=== PATIENT | female | born 2000 | race Caucasian/White ===

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

== ENCOUNTER → 2021-01-27 14:56 | Outpatient (POV) | payer OTHER, SELFPAY | PROVIDERS: Visit Provider Nurse Practitioner Family | DX: Z00.00 Encounter for general adult medical examination without abnormal findings (principal) ==

== ENCOUNTER 2021-02-03 09:09 | Emergency (ER) | payer OTHER, SELFPAY ==
[2021-02-03 10:00] VITALS: BP 141/70; PULSE 73; RESP 18; TEMP 36.8; O2SAT 100; BMI 24.7
--- NOTE | 2021-02-03 10:19 | HMH.EDUTC ---
[facility] [place] Clinical Impression: Viral upper respiratory infection, Encounter for laboratory testing for COVID-19 virus Disposition: Home, Self-Care Condition on Discharge: Good Instructions: DI for Viral Upper Respiratory Infection -- Adult, DI for COVID-19 (Suspected or Confirmed ), Preventing the Spread of Coronavirus Discharge Instructions Additional Instructions: *Monitor Temp, Over the counter Motrin or Tylenol as directed/as needed Tylenol every 4 hours and Motrin every 6 hours (as long as your family doctor has told you that you can take it) for fever or pa-in. and straight to ER if unable to lower temp less than 101.0 after medication given *Warm salt water gargles may help to soothe the throat *Throat Lozenges *Warm fluids like tea with honey may help to soothe the throat *Sleep elevated *Humidifier/Vaporizer *Flonase 2 sprays in each nostril daily but be aware that it may take 2-3 days before you notice improvement Your throat swab was sent for culture. Those results are typically sent to your primary care. Be sure to follow up in 2-3 days with your family doctor/primary care physician if no improvement so they can review those result and treat if necessary. If you don?t have a primary care doctor, I recommend you get one but in the mean time, you will have to return to a walk in clinic Follow up IMMEDIATELY for new or worsening symptoms or no Noticeable improvement over the next 48-72 hours. 911 for difficulty breathing or swallowing You were tested for today for COVID19 your test result should be back in the next 24-48 hours, [facility] to see if your test results are back in the next 48 it may say detected that means your result is positive.You was given handout instructions on how log on and see your results. If you do not have internet access you may call the [facility] for your results [phone] You was given a handout with instructions for Self Quarantine and Self isolation for while you wait on test results and what to do if they are positive If you are positive the Health Dept will be contacting you also Make sure to take your Vitamins Vit. C Vit D and Zinc if you can take them Prescriptions: Fluticasone Propionate [Flonase 50mcg nasal spray 16gm] 1 spr NS DAILY #1 ml Transmission Status: Pending to [facility] guaiFENesin [Mucinex 600mg tablet] 600 mg PO BID PRN #12 tab PRN Reason: Congestion Transmission Status: Pending to [facility] Referrals: Terry Hoff MD [Primary Care Provider] - As needed Forms: Work/School Release Time of Disposition: 10:29 Medical Decision Making - Luis Inquiry Pt receiving controlled substance: No Luis was queried for this patient: No Vital Signs: 02/03/21 10:00 Temperature 98.3 F Temperature Source Oral Pulse Rate [Right Brachial] 73 Respiratory Rate 18 Blood Pressure [Right Arm] 141/70 H Blood Pressure Mean [Right Arm] 93 Blood Pressure Source [Right Arm] Automatic Cuff Blood Pressure Position [Right Arm] Sitting 02 Sat by Pulse Oximetry 100 Oxygen Delivery Method Room Air Orders (Tests/Meds): ORDERS Category Date Time Status Covid-19 Nasal PCR ([facility]) Routine Lab 02/03/21 09:52 Stop Req Full Resp Panel w/COVID ([facility]) Routine Lab 02/03/21 09:52 Received Medical Decision Narrative: Denies chance of pregancy [facility] [place] HPI - General Stated complaint: Fever; cough; sore throat Time Seen by Provider: 02/03/21 10:19 Mode of Arrival: Ambulatory Source of Information: Patient Limitations: No Limitations Description of Symptoms (Recalled from Triage Doc. by RN): PATIENT C/O FEVER, COUGH, SORE THROAT, AND RUNNY NOSE X 2 DAYS HEENT Symptoms (Recalled from RN notes): Yes Resp Symptoms (Recalled from RN notes): Yes Skin Symptoms (Recalled from RN notes): No MS Symptoms (Recalled from RN notes): No Functional Status (Recalled from RN notes): WNL - History of Present Illness Provider Complaint: Patie
[2021-02-03 10:30] VITALS: BP 141/70; PULSE 73; RESP 18; TEMP 36.8; O2SAT 100
[2021-02-03 10:31] LABS: Adenovirus,PCR Not Detected (NotDetected); Bordetella Pertussis Not Detected (NotDetected); Chlamydophila Pneumoniae, PCR Not Detected (NotDetected); Coronavirus 19, PCR Not Detected (NotDetected); Coronavirus 229E Not Detected (NotDetected); Coronavirus NL63 Not Detected (NotDetected); Coronavirus OC43 Not Detected (NotDetected); Coronovirus HKU1,PCR Not Detected (NotDetected); Human Metapneumovirus Not Detected (NotDetected); Influenza A, PCR Not Detected (NotDetected); Influenza AH1, 2009 Not Detected (NotDetected); Influenza AH1, PCR Not Detected (NotDetected); Influenza AH3,PCR Not Detected (NotDetected); Influenza B, PCR Not Detected (NotDetected); Mycoplasma Pneumoniae, PCR Not Detected (NotDetected); Parainfluenza 1, PCR Not Detected (NotDetected); Parainfluenza 2, PCR Not Detected (NotDetected); Parainfluenza 3, PCR Not Detected (NotDetected); Parainfluenza 4, PCR Not Detected (NotDetected); Respiratory Syncytial Virus Not Detected (NotDetected)
[2021-02-03 11:53] LABS: Rhinovirus/Enterovirus Detected (NotDetected)
[2021-02-03 21:19] LABS: UTC Strep Screen (Rapid) Negative (Negative)
== END 2021-02-03 10:35 | disposition home or self-care (01) ==
PROVIDERS: Emergency Provider Nurse Practitioner; PCP Internal Medicine Adolescent Medicine
DX: J06.9 Acute upper respiratory infection, unspecified (principal); Z20.822 Contact with and (suspected) exposure to COVID-19
CPT/HCPCS: 87581; 87633; 87798; 87880; 99203; G0463; U0003

== ENCOUNTER 2021-02-04 19:56 | Emergency (ER) | payer OTHER, SELFPAY ==
[2021-02-04 20:00] VITALS: BP 130/71; PULSE 88; RESP 18; TEMP 37.3; O2SAT 96; BMI 24.7
--- NOTE | 2021-02-04 20:45 | HMH.EDUTC ---
[facility] [place]: Vertigo Disposition: Home, Self-Care Condition on Discharge: Good Instructions: Vertigo, DI for Vertigo, Meclizine Additional Instructions: Dont take your Escitalopram if you are taking Zofran Take Meclizine as prescribed for dizziness and Vertigo Follow up with your Family Doctor for further treatment and evaluation Straight to ER if any life threatening symptoms Prescriptions: Meclizine HCl [Antivert 12.5mg tablet] 12.5 mg PO Q8HP PRN #15 tab PRN Reason: Dizziness Transmission Status: Pending to [facility] Referrals: Terry Hoff MD [Primary Care Provider] - As needed Forms: Work/School Release Time of Disposition: 21:28 Medical Decision Making - Luis Inquiry Pt receiving controlled substance: No Luis was queried for this patient: No Vital Signs: 02/04/21 20:00 02/04/21 21:03 Temperature 99.1 F 99.1 F Temperature Source Oral Pulse Rate 88 Pulse Rate [Right Brachial] 88 Respiratory Rate 18 18 Blood Pressure 130/71 Blood Pressure [Right Arm] 130/71 Blood Pressure Mean [Right Arm] 90 Blood Pressure Source [Right Arm] Automatic Cuff Blood Pressure Position [Right Arm] Sitting 02 Sat by Pulse Oximetry 96 Oxygen Delivery Method Room Air Orders (Tests/Meds): ED MEDICATIONS Generic Name Dose Route Start Last Admin Trade Name Freq PRN Reason Stop Dose Admin Meclizine HCl 12.5 mg 02/04/21 21:00 02/04/21 21:03 Meclizine 12.5mg Tablet PO 03/06/21 20:59 12.5 mg TID SKIP Administration Discontinued Medications Generic Name Dose Route Start Last Admin Trade Name Freq PRN Reason Stop Dose Admin Ondansetron HCl 4 mg 02/04/21 20:51 02/04/21 21:03 Ondansetron 4mg/2ml Vial IM 02/04/21 20:52 4 mg ONCE ONE Administration Medical Decision Narrative: Patient state that today is last day of period State that when she moves her head it feels like the room is spinning around her and makes her feel sick at her stomach State that when she moves too quickly she will vomit and has vomited several times today prior to arrival Patient states that she is suppose to take Escitalopram but she only takes it every now and then States that she has not taken it in several days Discussed with pharmacy and agreed patient states that she attempted to take oral zofran earlier will give injection and 12.5mg meclizine for vertigo Patient states that she feels much better after medication no longer vomiting and state that dizziness is now gone [facility] [place] - General Stated complaint: Sore throat,cough,VEGA Time Seen by Provider: 02/04/21 20:45 Mode of Arrival: Ambulatory Source of Information: Patient Limitations: No Limitations Description of Symptoms (Recalled from Triage Doc. by RN): PATIENT SEEN IN [email or web address] YESTERDAY AND DX WITH RHINOVIRUS. TODAY SHE C/O DIZZINESS WITH VOMITING AT AROUND 1430. HEENT Symptoms (Recalled from RN notes): Yes Resp Symptoms (Recalled from RN notes): No Skin Symptoms (Recalled from RN notes): No MS Symptoms (Recalled from RN notes): No Functional Status (Recalled from RN notes): WNL - History of Present Illness Provider Complaint: Patient state that she was seen in [facility] [[email or web address] yesterday and dx with RhinoVirus States that she was fine earlier today and then she bent over and felt like the room started spinning around her and she vomited because it made her feel sick at her stomach States that now when she moves her head it feels like the room starts spinning and it makes her feel dizzy and sick at her stomach - Related Data Home Medications Medication Instructions Recorded Confirmed azaTHIOprine [azaTHIOprine 50mg 50 mg PO DAILY 09/21/17 02/03/21 Tablet] Escitalopram Oxalate [Lexapro] 10 mg PO DAILY 02/03/21 02/03/21 Levothyroxine Sodium 50 mcg PO DAILY 02/03/21 02/03/21 [Levothyroxine 50mcg (0.05mg) Tab] Previous Rx's Medication Instructions Recorded Fluticasone Propionate [Flonase 1 spr NS DAILY
[2021-02-04 21:03] VITALS: BP 130/71; PULSE 88; RESP 18; TEMP 37.3; O2SAT 96
== END 2021-02-04 21:33 | disposition home or self-care (01) ==
PROVIDERS: Emergency Provider Nurse Practitioner; PCP Internal Medicine Adolescent Medicine
DX: R42 Dizziness and giddiness (principal); Z88.0 Allergy status to penicillin; Z88.5 Allergy status to narcotic agent
CPT/HCPCS: 96372; 99202; G0463; J2405

== ENCOUNTER 2021-03-04 09:35 | Emergency (ER) | payer OTHER, SELFPAY ==
[2021-03-04 09:59] VITALS: BP 117/77; PULSE 78; RESP 19; TEMP 36.9; O2SAT 98; BMI 26.9
--- NOTE | 2021-03-04 10:12 | HMH.EDUTC ---
[facility] [place] Dis[place] Clinical Impression: Vertigo Disposition: Home, Self-Care Condition on Discharge: Good Instructions: Vertigo, DI for Vertigo Additional Instructions: Take medication as prescribed for Vertigo When getting up make sure to sit up, let your legs dangle and stand slowly to help keep you from falling Follow up with your Family Doctor for further evaluation and treatment Return if needed Straight to ER if any life threatening symptoms Prescriptions: Meclizine HCl [Antivert 12.5mg tablet] 12.5 mg PO Q8HP PRN #30 tab PRN Reason: Dizziness Transmission Status: Received by [facility] Ondansetron [Zofran 4mg ODT] 4 mg PO TIDP PRN #10 tab PRN Reason: Nausea Transmission Status: Received by [facility] Referrals: Terry Hoff MD [Primary Care Provider] - As needed Forms: Work/School Release Medical Decision Making - Luis Inquiry Pt receiving controlled substance: No Luis was queried for this patient: No Vital Signs: 03/04/21 09:59 03/04/21 10:37 Temperature 98.5 F 98.5 F Temperature Source Oral Pulse Rate 78 Pulse Rate [Left] 78 Respiratory Rate 19 19 Blood Pressure 117/77 Blood Pressure [Right Arm] 117/77 Blood Pressure Mean [Right Arm] 90 02 Sat by Pulse Oximetry 98 - Lab Data Lab results reviewed: Yes: I reviewed the patient's lab results. Lab Results 03/04/21 10:06: [facility] Negative Orders (Tests/Meds): ED MEDICATIONS Discontinued Medications Generic Name Dose Route Start Last Admin Trade Name Jordanq PRN Reason Stop Dose Admin Meclizine HCl 12.5 mg 03/04/21 10:32 03/04/21 10:34 Meclizine 25mg Tablet PO 03/04/21 10:33 12.5 mg ONCE ONE Administration Ondansetron HCl 4 mg 03/04/21 10:32 03/04/21 10:34 Ondansetron 4mg Odt SL 03/04/21 10:33 4 mg ONCE ONE Administration Medical Decision Narrative: Patient reports that she is having vertigo like she has had in the past States that when she stands up or rolls over she feels like the room is spinning around her and it makes her feel nauseous States that she had Meclizine that she took when she would have these episodes and it did help with symptoms but she is out of the medication and has not got to see PCP Patient states vertigo and nausea improved after medication [facility] [place] HPI - General Stated complaint: Nausea, vomiting, dizzy Time Seen by Provider: 03/04/21 10:12 Mode of Arrival: Ambulatory Source of Information: Patient Limitations: No Limitations HEENT Symptoms (Recalled from RN notes): No Resp Symptoms (Recalled from RN notes): No Skin Symptoms (Recalled from RN notes): No MS Symptoms (Recalled from RN notes): No Functional Status (Recalled from RN notes): dizziness - History of Present Illness Provider Complaint: Patient states that she has a history of vertigo and had some meclizine that she took PRN for it States that she is out of the Meclizine and woke up this morning having some dizziness that made her have nausea States that she feels like the room is spinning so she came in to get checked and see if she can get some more Meclizine - Related Data Home Medications Medication Instructions Recorded Confirmed azaTHIOprine [azaTHIOprine 50mg 50 mg PO DAILY 09/21/17 02/03/21 Tablet] Escitalopram Oxalate [Lexapro] 10 mg PO DAILY 02/03/21 02/03/21 Levothyroxine Sodium 50 mcg PO DAILY 02/03/21 02/03/21 [Levothyroxine 50mcg (0.05mg) Tab] Previous Rx's Medication Instructions Recorded Fluticasone Propionate [Flonase 1 spr NS DAILY #1 ml 02/03/21 50mcg nasal spray 16gm] guaiFENesin [Mucinex 600mg tablet] 600 mg PO BID PRN #12 tab 02/03/21 Meclizine HCl [Antivert 12.5mg 12.5 mg PO Q8HP PRN #15 tab 02/04/21 tablet] Meclizine HCl [Antivert 12.5mg 12.5 mg PO Q8HP PRN #30 tab 03/04/21 tablet] Ondansetron [Zofran 4mg ODT] 4 mg PO TIDP PRN #10 tab 03/04/21 Allergies Allergy/AdvReac Type Severity Reacti
[2021-03-04 10:17] LABS: UTC Pregnancy Test, Urine Negative (Negative)
[2021-03-04 10:37] VITALS: BP 117/77; PULSE 78; RESP 19; TEMP 36.9
== END 2021-03-04 10:57 | disposition home or self-care (01) ==
PROVIDERS: Emergency Provider Nurse Practitioner; PCP Internal Medicine Adolescent Medicine
DX: R42 Dizziness and giddiness (principal); R11.2 Nausea with vomiting, unspecified; Z88.0 Allergy status to penicillin
CPT/HCPCS: 81025; 99202; G0463

== ENCOUNTER → 2021-03-13 08:38 | Outpatient (CLI) | payer OTHER, SELFPAY ==
[2021-03-13 09:46] LABS: Chloride 105 mmol/L (98-107); Sodium 139 mmol/L (136-145)
[2021-03-13 09:47] LABS: Potassium 4.4 mmoL/L (3.5-5.1)
[2021-03-13 09:49] LABS: Alanine Aminotransferase 19 U/L (12-78); Albumin Level 3.9 g/dl (3.5-5.0); Albumin/Globulin Ratio 1.2 (1.1-1.8); Alkaline Phosphatase 61 U/L (38-126); Anion Gap 11.4 mEq/L (5-15); Aspartate Amino Transferase 29 U/L (14-36); Bilirubin,Total 0.3 mg/dl (0.2-1.3); Blood Urea Nitrogen 13 mg/dl (7-17); Carbon Dioxide 27 mmol/L (22.0-30.0); Estimated Glomerular Filt Rate 108 ml/min (>60); GFR (African American) 130 ML/MIN (>60); Globulin 3.3 g/dL (1.3-3.2); Total Protein,Serum 7.2 g/dl (6.3-8.2)
[2021-03-13 09:50] LABS: Glucose 88 mg/dl (74-100)
[2021-03-13 10:04] LABS: Triiodothryronine (T3) Uptake 21 % (23.5-40.5)
[2021-03-13 10:05] LABS: Free Thyroxine Index 2.1 ug/dL (5.93-13.13); T4 (Thyroxine) 9.9 ug/dl (5.53-11.0)
== END ==
PROVIDERS: Visit Provider Nurse Practitioner Family
DX: K75.4 Autoimmune hepatitis (principal); E03.9 Hypothyroidism, unspecified
CPT/HCPCS: 36415; 80053; 84436; 84443; 84479

== ENCOUNTER → 2021-03-28 18:07 | Outpatient (CLI) | payer OTHER, SELFPAY ==
[2021-03-28 18:27] LABS: Basophils # 0.1 K/mm3 (0-0.2); Basophils % 1.5 % (0.1-2.0); Eosinophils # 0.1 K/mm3 (0.0-0.4); Eosinophils % 0.6 % (0.1-12.0); Hematocrit 41.5 % (37.0-47.0); Hemoglobin 13.6 g/dL (12.2-16.2); Lymphocytes % 25.8 % (10-50); Mean Corpuscular HGB Conc 32.9 g/dL (31.8-35.4); Mean Corpuscular Hemoglobin 30.1 pg (27.0-31.2); Mean Corpuscular Volume 91.7 fl (81-99); Mean Platelet Volume 8.7 fl (7.4-10.4); Monocytes # 0.3 K/mm3 (0.1-1.0); Monocytes % 3.5 % (1.7-9.3); Neutrophils # 5.4 K/mm3 (1.8-7.8); Neutrophils % 68.6 % (37.0-80.0); Platelet Count 344 K/mm3 (142-424); Red Blood Count 4.52 M/mm3 (4.20-5.40); Red Cell Distribution Width 12.7 % (11.5-17.5); White Blood Count 7.9 K/mm3 (4.5-13.0)
[2021-03-28 19:31] LABS: Chloride 104 mmol/L (98-107); Potassium 4.2 mmoL/L (3.5-5.1); Sodium 139 mmol/L (136-145)
[2021-03-28 19:33] LABS: Alanine Aminotransferase 17 U/L (12-78); Aspartate Amino Transferase 31 U/L (14-36); Blood Urea Nitrogen 7 mg/dl (7-17); Estimated Glomerular Filt Rate 108 ml/min (>60); GFR (African American) 130 ML/MIN (>60)
[2021-03-28 19:34] LABS: Albumin/Globulin Ratio 1.3 (1.1-1.8); Alkaline Phosphatase 75 U/L (38-126); Anion Gap 14.2 mEq/L (5-15); Bilirubin,Total 0.2 mg/dl (0.2-1.3); Calcium 9.2 mg/dl (8.4-10.2); Carbon Dioxide 25 mmol/L (22.0-30.0); Globulin 3.2 g/dL (1.3-3.2); Glucose 83 mg/dl (74-100); Total Protein,Serum 7.2 g/dl (6.3-8.2)
[2021-03-30 15:18] LABS: AFP, Tumor Marker <0.9 ng/mL (0.0-8.3)
[2021-04-01 03:38] LABS: ALT (SGPT) P5P 17 IU/L (0-40); AST (SGOT) P5P 30 IU/L (0-40); Alpha 2-Macroglobulins, Qn 202 mg/dL (110-276); Apolipoprotein A-1 141 mg/dL (116-209); Bilirubin, Total <0.1 mg/dL (0.0-1.2); Cholesterol, Total 148 mg/dL (100-169); Fibrosis Score 0.02 (0.00-0.21); GGT 7 IU/L (0-60); Glucose 78 mg/dL (65-99); Haptoglobin 93 mg/dL (33-278); NASH Score 0.25 (0.25); Steatosis Score 0.14 (0.00-0.30); Triglycerides 123 mg/dL (0-149)
== END ==
PROVIDERS: Visit Provider Nurse Practitioner Family
DX: R10.84 Generalized abdominal pain (principal); R14.0 Abdominal distension (gaseous); K75.4 Autoimmune hepatitis
CPT/HCPCS: 36415; 80053; 82105; 85025

== ENCOUNTER → 2021-04-12 09:17 | Outpatient (CLI) | payer OTHER, SELFPAY ==
[2021-04-12 11:50] LABS: Coronavirus 19, PCR Not Detected (NotDetected); Influenza A, PCR Not Detected (NotDetected); Influenza B, PCR Not Detected (NotDetected)
== END ==
PROVIDERS: PCP Internal Medicine Adolescent Medicine; Visit Provider Internal Medicine Adolescent Medicine
DX: Z20.822 Contact with and (suspected) exposure to COVID-19 (principal)
CPT/HCPCS: C9803; U0003; U0005

== ENCOUNTER 2021-06-30 18:54 | Emergency (ER) | payer OTHER, SELFPAY ==
[2021-06-30 19:01] VITALS: PULSE 87; RESP 16; TEMP 37.7; O2SAT 100; BMI 21.4
[2021-06-30 20:49] VITALS: BP 124/80; PULSE 75; RESP 18; TEMP 36.7; O2SAT 100; BMI 24.7
--- NOTE | 2021-06-30 20:54 | HMH.EDUTC ---
[facility] [place] Clinical Impression: Nausea vomiting and diarrhea Disposition: Home, Self-Care Condition on Discharge: Good Instructions: Nausea and Vomiting-Adult, DI for COVID-19 (Suspected or Confirmed ), Preventing the Spread of Coronavirus Discharge Instructions Additional Instructions: Warm salt water gargles will help with sore throat Over the counter cough and cold medication may help with cough and nasal congestion Over the counter Motrin and/or Tylenol may help with fever chills and body aches Make sure to drink plenty of fluids like water and gatoraid to keep yourself hydrated You may check your COVID results on the [facility] my health portal for your results they should be there in the next 24-72 hours Eat crackers applesauce and toast to help calm your stomach Return if any worsening of symptoms Straight to ER if any life threatening symptoms Prescriptions: Promethazine HCl [Phenergan 12.5mg tablet] 12.5 mg PO Q6H PRN #6 tab PRN Reason: Vomiting Transmission Status: Pending to [facility] Referrals: Terry Hoff MD [Primary Care Provider] - As needed Forms: Work/School Release Medical Decision Making - Luis Inquiry Pt receiving controlled substance: No Luis was queried for this patient: No Vital Signs: 06/30/21 19:01 06/30/21 20:49 Temperature 99.9 F H 98.1 F Temperature Source Oral Oral Pulse Rate [Right] 87 75 Respiratory Rate 16 18 Blood Pressure [Right Arm] 124/80 Blood Pressure Mean [Right Arm] 94 Blood Pressure Source [Right Arm] Automatic Cuff Blood Pressure Position [Right Arm] Sitting 02 Sat by Pulse Oximetry 100 100 Oxygen Delivery Method Room Air Room Air - Lab Data Lab results reviewed: Yes: I reviewed the patient's lab results. Orders (Tests/Meds): ED MEDICATIONS Discontinued Medications Generic Name Dose Route Start Last Admin Trade Name Freq PRN Reason Stop Dose Admin Ondansetron HCl 4 mg 06/30/21 21:01 06/30/21 21:02 Ondansetron 4mg/2ml Vial IM 06/30/21 21:02 4 mg ONCE ONE Administration ORDERS Category Date Time Status Covid-19 Nasal PCR ([facility]) Routine Lab 06/30/21 20:52 Ordered HCG,Quantitative Stat Lab 06/30/21 20:52 Ordered Medical Decision Narrative: Patient reports that she has taken phenergan in the past without complications or reactions [facility] [place] HPI - General Stated complaint: vomiting,diarrhea, headache, congestion Time Seen by Provider: 06/30/21 20:54 Mode of Arrival: Ambulatory Source of Information: Patient Limitations: No Limitations Description of Symptoms (Recalled from Triage Doc. by RN): headache, fever, vomiting, diarrhea HEENT Symptoms (Recalled from RN notes): Yes Resp Symptoms (Recalled from RN notes): Yes Skin Symptoms (Recalled from RN notes): No MS Symptoms (Recalled from RN notes): No Functional Status (Recalled from RN notes): na - History of Present Illness Provider Complaint: Patient states that she has had diarrhea for several days States that today started having nausea, vomiting, body aches, chills and feeling achy all over States that she had some zofran at home and took it but she then vomited the medication back up States that this evening she was still not feeling well so she came in Denies abdominal pain Denies known exposure to COVID - Related Data Home Medications Medication Instructions Recorded Confirmed azaTHIOprine [azaTHIOprine 50mg 50 mg PO DAILY 09/21/17 02/03/21 Tablet] Escitalopram Oxalate [Lexapro] 10 mg PO DAILY 02/03/21 02/03/21 Levothyroxine Sodium 50 mcg PO DAILY 02/03/21 02/03/21 [Levothyroxine 50mcg (0.05mg) Tab] Previous Rx's Medication Instructions Recorded Fluticasone Propionate [Flonase 1 spr NS DAILY #1 ml 02/03/21 50mcg nasal spray 16gm] guaiFENesin [Mucinex 600mg tablet] 600 mg PO BID PRN #12 tab 02/03/21 Meclizine HCl [Antivert 12.5mg 12.5 mg PO Q8HP PRN #15 tab 02/04/21 tablet] Meclizine HCl [Antivert 12.5mg 12.5 mg
[2021-06-30 21:09] VITALS: BP 120/80; PULSE 75; RESP 20; TEMP 36.7; O2SAT 98
== END 2021-06-30 21:10 | disposition home or self-care (01) ==
PROVIDERS: Emergency Provider Nurse Practitioner Family; PCP Internal Medicine Adolescent Medicine
DX: R11.2 Nausea with vomiting, unspecified (principal); Z20.822 Contact with and (suspected) exposure to COVID-19; R51.9 Headache, unspecified
CPT/HCPCS: 96372; 99202; C9803; G0463; J2405; U0003; U0005

== ENCOUNTER → 2021-12-26 21:42 | Outpatient (CLI) | payer OTHER, SELFPAY | PROVIDERS: PCP Internal Medicine Adolescent Medicine; Visit Provider Emergency Medicine | DX: U07.1 COVID-19 (principal) | CPT/HCPCS: C9803; U0003; U0005 ==

== ENCOUNTER → 2022-05-18 16:14 | Outpatient (CLI) | payer OTHER, SELFPAY ==
[2022-05-20 07:26] LABS: HSV 1 IgG, Type Spec <0.91 index (0.00-0.90); HSV 2 IgG, Type Spec <0.91 index (0.00-0.90)
== END ==
PROVIDERS: PCP Internal Medicine Adolescent Medicine; Visit Provider Nurse Practitioner Obstetrics & Gynecology
DX: N89.5 Stricture and atresia of vagina (principal); K75.4 Autoimmune hepatitis
CPT/HCPCS: 36415; 86695; 86790

== ENCOUNTER 2023-02-09 07:54 | Emergency (ER) | payer OTHER, SELFPAY ==
[2023-02-09 07:55] VITALS: BP 123/72; PULSE 105; RESP 19; TEMP 37.1; O2SAT 96; BMI 29.2
[2023-02-09 08:00] VITALS: BP 123/72; PULSE 93; O2SAT 97
[2023-02-09 08:41] LABS: Microscopic, Urine URINE MICROSCOPIC (MICROSCOPIC)
--- NOTE | 2023-02-09 08:43 | HMH.EDGENADL ---
Discharge Plan Disposition Patient Disposition: Home, Self-Care Prescriptions Prescriptions: New ondansetron 4 mg tablet,disintegrating 4 mg PO Q6H PRN (Reason: nausea and vomiting) 5 Days Qty: 20 0RF Referrals Follow up/Referrals: Terry Hoff MD [Primary Care Provider] - See instructions Activity Restrictions/Add. Instructions Additional Instructions/Restrictions: Return with worsening symptoms or inability to keep any fluids down by mouth. Clinical Impressions Clinical Impression: Nausea vomiting and diarrhea Instructions Patient Instructions: DI for Acute Abdominal Pain Discharge ED Provider: Hunter Paz General Adult HPI General Chief complaint: Abdominal Pain Stated complaint: N/V abd pain Time Seen by Provider: 02/09/23 08:36 Mode of Arrival: Ambulatory Source of Information: Patient Limitations: No Limitations Description of Symptoms (Recalled from ER Triage Doc. by RN): Pt c/o generalized abd pain, nausea, vomtiing, and diarrhea that began yesterday afternoon. States she had [employer] yesterday and then developed these symtoms. States she feels better and no cramping for about 15 min after vomiting or having a bowel movement. However, she has been having more episodes of vomtiing and diarrhea and worried about dehydration. She states she has a hx of autoimmune hepatitis that she is no longer receiving treatment for. Denies any fever. She does reports chills and episodes of diaphoresis. History of Present Illness HPI narrative: Patient is a 22-year-old female here with nausea vomiting diarrhea and some abdominal crampy discomfort in between episodes. States this began yesterday where she had nausea and diarrhea she had numerous episodes none bloody no mucus regarding her diarrhea. Subsequently she developed nausea vomiting yesterday evening around 7 PM and she had at least 5 episodes nonbilious nonbloody. She has sharp crampy abdominal pain that precedes the vomiting and diarrhea episodes and in between episodes she feels significantly better. No one is sick around her specifically no one that she was eating with around the time when she began having the symptoms. She has a history of autoimmune hepatitis but states her labs have been relatively normal recently. She is not on any medications for this she no longer follows with a ssis developer or business banking relationship manager. Related Data Previous Rx's Medication Instructions Recorded ondansetron 4 mg disintegrating 4 mg PO Q6H PRN nausea and 02/09/23 tablet vomiting 5 days #20 tabs Allergies Allergy/AdvReac Type Severity Reaction Status Date / Time Penicillins [PENICILLINS] Allergy Intermediate Unknown Verified 02/09/23 08:39 allergy reaction codeine [CODEINE] Allergy Mild Unknown Verified 02/09/23 08:39 allergy reaction acetaminophen [From Tylenol] AdvReac Severe hx of Verified 02/09/23 08:39 autoimmune hepatitis [facility] Disclaimer: The information contained in this section may have been updated after the patient was seen, as this information can be updated by other users. Medical History Autoimmune hepatitis Nexplanon in place Surgical History (Updated 02/09/23 @ 08:38 by Hermila Carranza RN) History of liver biopsy Family History (Updated 09/02/22 @ 14:14 by POLO Hassan) Other No significant family history Social History Smoking Status: Never smoker second hand exposure: No alcohol intake: never substance use type: denies use current occupational status: other Travel in the last 8 weeks: None household members: family housing: house ROS Obtained: Yes All systems reviewed & no additional complaints except as documented Physical Exam General General appearance: alert Respiratory Respiratory exam: Present normal lung sounds bilaterally; Absent respiratory distress Cardiovascular Cardiovascular exam:
[2023-02-09 08:51] LABS: Basophils % 0.2 % (0.1-2.0); Eosinophils % 0.1 % (0.1-12.0); Hematocrit 37.1 % (37.0-47.0); Hemoglobin 14.1 g/dL (12.2-16.2); Lymphocytes # 0.6 K/mm3 (0.7-4.5); Mean Corpuscular Hemoglobin 33.1 pg (27.0-31.2); Mean Corpuscular Volume 87.1 fl (81-99); Monocytes # 0.3 K/mm3 (0.1-1.0); Monocytes % 3.3 % (1.7-9.3); Neutrophils # 6.7 K/mm3 (1.8-7.8); Neutrophils % 88.4 % (37.0-80.0); Platelet Count 209 K/mm3 (142-424); Red Blood Count 4.26 M/mm3 (4.20-5.40); Red Cell Distribution Width 12.9 % (11.5-17.5); White Blood Count 7.5 K/mm3 (4.8-10.8)
[2023-02-09 08:58] LABS: Activated Partial Thrombo Time 27.3 seconds (22.8-30.6); INR 1.05 (0.9-1.1); Prothrombin Time 11.3 seconds (10.1-12.5)
[2023-02-09 08:59] LABS: Alanine Aminotransferase 32 U/L (12-78); Albumin Level 4.7 g/dl (3.5-5.0); Albumin/Globulin Ratio 1.2 (1.1-1.8); Alkaline Phosphatase 93 U/L (38-126); Anion Gap 16.9 mEq/L (5-15); Aspartate Amino Transferase 35 U/L (14-36); Bilirubin,Total 0.5 mg/dl (0.2-1.3); Blood Urea Nitrogen 10 mg/dl (7-17); Calcium 9.4 mg/dl (8.4-10.2); Carbon Dioxide 24 mmol/L (22.0-30.0); Chloride 101 mmol/L (98-107); Creatinine Clearance Estimated 117 mL/min (50-200); Estimated Glomerular Filt Rate 79 ml/min (>60); GFR (African American) 96 ML/MIN (>60); Globulin 3.9 g/dL (1.3-3.2); Glucose 112 mg/dl (74-100); MANUAL DIFFERENTIAL MANUAL DIFFERENTIAL (MANUAL DIFF); Potassium 3.9 mmoL/L (3.5-5.1); Sodium 138 mmol/L (136-145); Total Protein,Serum 8.6 g/dl (6.3-8.2)
--- NOTE | 2023-02-09 08:59 | PC.NURSE ---
pt given warm blanket, no needs voiced at this time
[2023-02-09 09:00] VITALS: BP 111/62; PULSE 76; O2SAT 95
[2023-02-09 09:00] LABS: HCG Qualitative, Serum Negative (Negative)
[2023-02-09 09:01] LABS: Appearance,Urine Clear (Clear); Color,Urine Yellow (Yellow); Glucose,Urine (UA) Negative (Negative); Protein,Urine Trace (Negative); Specific Gravity, Urine >= 1.030 (1.005-1.030)
[2023-02-09 09:02] LABS: Bacteria,Urine 1+ /lpf; Bilirubin,Urine Negative (Negative); Blood, Urine 3+ (Negative); Ketones,Urine Negative (Negative); Leukocyte Esterase,Urine 1+ (Negative); Nitrate,Urine Positive (Negative); Squamous Epithelial Cell,Urine Occasional #/hpf (0-5); Urobilinogen,Urine 0.2 EU/dl (0.2)
--- NOTE | 2023-02-09 09:05 | PC.NURSE ---
Dr. Paz at [facility] to update pt
[2023-02-09 09:12] LABS: Lymphocytes % 6 % (10-50); Monocytes % 3 % (2-9); Neutrophils % 91 % (42-76); Platelet Estimate Normal; RBC Morphology Normal; Total Cells Counted 100
[2023-02-09 09:30] VITALS: BP 110/64; PULSE 68; O2SAT 100
--- NOTE | 2023-02-09 10:47 | PC.NURSE ---
PT ambulatory to restroom. No other needs voiced.
--- NOTE | 2023-02-09 10:48 | PC.NURSE ---
Checked on patient. No needs at this time.
[2023-02-09 11:03] VITALS: BP 112/67; PULSE 68; RESP 17; TEMP 36.7; O2SAT 98
== END 2023-02-09 11:05 | disposition home or self-care (01) ==
PROVIDERS: Emergency Provider Student in an Organized Health Care Education/Training Program; PCP Internal Medicine Adolescent Medicine
DX: R10.84 Generalized abdominal pain (principal); R11.2 Nausea with vomiting, unspecified; R19.7 Diarrhea, unspecified; K75.4 Autoimmune hepatitis
CPT/HCPCS: 80053; 81001; 84703; 85007; 85025; 85610; 85730; 87086; 87088; 87186; 96361; 96374; 96375; 99285; J2405

== ENCOUNTER 2025-01-31 15:26 | Outpatient (CLI) | payer MEDICAID, SELFPAY ==
--- OUTSIDE RECORDS SUMMARY | 2025-01-31 15:28 | XMS_ITS | Clinical Summary ---
Author Organization Healthcare Address [address] [place] [address] Care Team Providers Care Truck Loader Name Role Phone Catalina Quintanilla APRN Primary Care Provider Immunizations Immunization Administration Dates Next Due Influenza, injectable, quadrivalent, preservativ e free 03/22/2018 Social History Tobacco Use Types Packs/Day Years Used Date Smoking Tobacco: Never Comments Unknown Sex and Gender Information Value Date Recorded Sex Assigned at Not on file Legal Sex Female 6:00 PM EDT Gender Identity Not on file Sexual Orientation Not on file Last Filed Vital Signs Vital Sign Reading Time Taken Comments Blood Pressure 122/71 07/04/2019 10:37 AM EST Pulse 78 07/04/2019 10:37 AM EST Temperature 37.3 C (99.1 F) 07/04/2019 10:37 AM EST Respiratory Rate 18 07/04/2019 10:37 AM EST Oxygen Saturation - - Inhaled Oxygen Concentration - - Weight 75.1 kg (165 lb 8.7 oz) 07/04/2019 10:37 AM EST Height 160.2 cm (5' 3.07 ) 07/04/2019 10:[address] Body Mass Index 29.26 07/04/2019 10:37 AM EST Plan of Treatment Not on file Care Teams Truck Loader Relationship Specialty Start Date End Date Catalina Quintanilla APRN PCP - General 10/18/20
[2025-01-31 18:18] LABS: Free T4 (Free Thyroxine) 1.31 ng/dl (0.78-2.19)
[2025-01-31 19:01] LABS: Thyroid Stimulating Hormone 3.54 uIU/mL (0.465-4.68)
== END 2025-01-31 23:59 | disposition home or self-care (01) ==
LOC: LAB 15:27
PROVIDERS: PCP Nurse Practitioner Family; Visit Provider Nurse Practitioner Family
DX: E03.9 Hypothyroidism, unspecified (principal)
CPT/HCPCS: 36415; 84439; 84443

== ENCOUNTER 2025-02-03 09:07 | Outpatient (CLI) | payer MEDICAID, SELFPAY ==
--- OUTSIDE RECORDS SUMMARY | 2025-02-03 09:10 | XMS_ITS | Clinical Summary ---
Author Organization Healthcare Address [address] [place] [address] Care Team Providers Care Deck Mechanic Name Role Phone Catalina Quintanilla APRN Primary [...] of Treatment Not on file Care Teams Deck Mechanic Relationship Specialty Start Date End Date Catalina Quintanilla APRN PCP - General 10/18/20
[2025-02-03 09:42] LABS: Hematocrit 39.3 % (37.0-47.0); Hemoglobin 13.2 g/dL (12.2-16.2); Immature Granulocytes % 0 %; Mean Corpuscular HGB Conc 33.6 g/dL (31.8-35.4); Mean Corpuscular Hemoglobin 29.5 pg (27.0-31.2); Mean Corpuscular Volume 87.7 fl (81-99); Nucleated Red Blood Cells % 0 %; Platelet Count 233 K/mm3 (142-424); Red Blood Count 4.48 M/mm3 (4.20-5.40); Red Cell Distribution Width-SD 40.1 fL; White Blood Count 3.9 K/mm3 (4.8-10.8)
[2025-02-03 09:52] LABS: INR 1.03 (0.9-1.1); Prothrombin Time 11.4 seconds (10.1-12.5)
[2025-02-03 11:30] LABS: Alanine Aminotransferase 54 U/L (12-78); Albumin Level 4.4 g/dl (3.5-5.0); Albumin/Globulin Ratio 1.5 (1.1-1.8); Alkaline Phosphatase 56 U/L (38-126); Anion Gap 12.4 mEq/L (5-15); Aspartate Amino Transferase 53 U/L (14-36); Bilirubin,Total 0.6 mg/dl (0.2-1.3); Blood Urea Nitrogen 12 mg/dl (7-17); Calcium 9.2 mg/dl (8.4-10.2); Carbon Dioxide 26 mmol/L (22.0-30.0); Chloride 105 mmol/L (98-107); Creatinine,Serum 0.80 mg/dl (0.52-1.04); Estimated Glomerular Filt Rate 89 ml/min (>60); GFR (African American) 108 ML/MIN (>60); Globulin 2.9 g/dL (1.3-3.2); Glucose 75 mg/dl (74-100); Potassium 4.4 mmoL/L (3.5-5.1); Sodium 139 mmol/L (136-145); Total Protein,Serum 7.3 g/dl (6.3-8.2)
[2025-02-06 14:12] LABS: Deamidated Gliadin Abs, IgA 12 units (0-19); Deamidated Gliadin Abs, IgG 3 units (0-19)
[2025-02-06 15:28] LABS: Saccharomyces cerevisiae, IgA <20.0 Units (0.0-24.9); Saccharomyces cerevisiae, IgG 25.6 Units (0.0-24.9)
[2025-02-07 08:13] LABS: Reticulin IgA Antibody Negative titer (Neg:<1:2.5)
[2025-02-07 09:12] LABS: ALT (SGPT) P5P 54 IU/L (0-40); AST (SGOT) P5P 55 IU/L (0-40); Alpha 2-Macroglobulins, Qn 185 mg/dL (110-276); Bilirubin, Total 0.3 mg/dL (0.0-1.2); Cholesterol, Total 150 mg/dL (100-199); GGT 16 IU/L (0-60); Glucose 75 mg/dL (70-99); Triglycerides 65 mg/dL (0-149)
== END 2025-02-03 23:59 | disposition home or self-care (01) ==
PROVIDERS: PCP Internal Medicine Adolescent Medicine; Visit Provider Nurse Practitioner Family
DX: K75.4 Autoimmune hepatitis (principal); R19.7 Diarrhea, unspecified; R79.89 Other specified abnormal findings of blood chemistry
CPT/HCPCS: 80053; 80074; 81596; 82172; 82247; 82465; 82947; 82977; 83521; 84450; 84460; 84478; 85025; 85610; 86231; 86256; 86258; 86364; 86671

== ENCOUNTER 2025-02-08 18:32 | Outpatient (CLI) | payer MEDICAID, SELFPAY ==
--- OUTSIDE RECORDS SUMMARY | 2025-02-08 18:35 | XMS_ITS | Clinical Summary ---
Author Organization Healthcare Address [address] [place] [address] Care Team Providers Care Cosmetology Professor Name Role Phone Catalina Quintanilla APRN Primary [...] of Treatment Not on file Care Teams Cosmetology Professor Relationship Specialty Start Date End Date Catalina Quintanilla APRN PCP - General 10/18/20
[2025-02-08 18:38] LABS: Adenovirus F 40/41, stool Not Detected (NotDetected); Clostridium Difficile A/B, PCR Not Detected (NotDetected); Cyclospora Cayetanesis Not Detected (NotDetected); Plesimonas Shigalloides, PCR Not Detected (NotDetected); Salmonella, PCR Not Detected (NotDetected); Shiga-like toxin E coli Not Detected (NotDetected); Shigella Enterovasive E coli Not Detected (NotDetected); Vibrio, PCR Not Detected (NotDetected); Yersinia Entercolitica, PCR Not Detected (NotDetected)
[2025-02-12 16:15] LABS: Calprotectin, Fecal 15 ug/g (0-120); Pancreatic Elastase, Fecal >800 (>200)
== END 2025-02-08 23:59 | disposition home or self-care (01) ==
LOC: LAB.DROPOF 18:33
PROVIDERS: PCP Internal Medicine Adolescent Medicine; Visit Provider Nurse Practitioner Family
DX: R19.7 Diarrhea, unspecified (principal)
CPT/HCPCS: 82653; 83993; 87506

== ENCOUNTER 2025-03-14 14:38 | Outpatient (CLI) | payer MEDICAID, SELFPAY ==
[2025-03-14 19:59] LABS: Albumin Level 4.1 g/dl (3.5-5.0); Chloride 102 mmol/L (98-107); Potassium 4.4 mmoL/L (3.5-5.1); Sodium 138 mmol/L (136-145)
[2025-03-14 20:02] LABS: Alanine Aminotransferase 28 U/L (12-78); Albumin/Globulin Ratio 1.3 (1.1-1.8); Alkaline Phosphatase 81 U/L (38-126); Aspartate Amino Transferase 31 U/L (14-36); Calcium 9.3 mg/dl (8.4-10.2); Globulin 3.1 g/dL (1.3-3.2); Glucose 81 mg/dl (74-100); Total Protein,Serum 7.2 g/dl (6.3-8.2)
[2025-03-14 20:09] LABS: Bilirubin,Total 0.1 mg/dl (0.2-1.3)
[2025-03-14 20:18] LABS: Blood Urea Nitrogen 16 mg/dl (7-17); Creatinine,Serum 1.00 mg/dl (0.52-1.04); Estimated Glomerular Filt Rate 69 ml/min (>60); GFR (African American) 83 ML/MIN (>60)
[2025-03-14 20:23] LABS: Anion Gap 13.4 mEq/L (5-15); Carbon Dioxide 27 mmol/L (22.0-30.0)
== END 2025-03-14 23:59 | disposition home or self-care (01) ==
LOC: LAB 14:38
PROVIDERS: PCP Internal Medicine Adolescent Medicine; Visit Provider Nurse Practitioner Family
DX: K75.4 Autoimmune hepatitis (principal)
CPT/HCPCS: 36415; 80053

== ENCOUNTER 2025-03-21 09:22 | Day surgery (SDC) | payer MEDICAID, SELFPAY ==
[2025-03-14 10:50] VITALS: BMI 26.5
--- NOTE | 2025-03-14 16:40 | EXP.HP ---
History of Present Illness *Admission Date: 03/21/25 *History of present illness: Ms. Anthony is a 24-year-old female who is here for diagnostic colonoscopy. The patient reports loose stools daily with a lot of bloating, gassiness and belching. She reports 3-4 loose or watery stools daily. She did have an elevated ASCA IgG (25.6). She also previously had an equivocal elevation of tissue transglutaminase IgG (10) with remaining celiac serologies normal. Her fecal elastase testing was greater than 800 mcg/g and her fecal calprotectin was normal at 15. She did take FiberCon for 2 weeks without improvement. The patient does have a history of chronic autoimmune hepatitis diagnosed at age 15. Serum hepatic fibrotic markers have shown hepatic stage F0 fibrosis. The examination is deemed medically necessary for diagnostic colonoscopy. The patient has been seen, interviewed and examined prior to the procedure by both myself and the anesthesia provider. [facility] Disclaimer: The information contained in this section may have been updated after the patient was seen, as this information can be updated by other users. Medical History Contraceptive management History of hypothyroidism Autoimmune hepatitis Surgical History History of liver biopsy Family History Other No significant family history Social History Smoking Status: Never smoker second hand exposure: No alcohol intake: never substance use type: denies use current occupational status: other Travel in the last 8 weeks?: None household members: family housing: house Have you lived/traveled outside US in past 30 days?: No Contact w/someone who lives/traveled outside US past 30 days?: No Exposure to someone with infectious disease in past 14 days?: No Do you have a fever (greater than 100.4 F or 38 C)?: No Have you tested positive for COVID-19?: No Exposed to someone with COVID-19 in past 14 days?: No Do you have a sore throat?: No Do you have a cough?: No Do you have any weakness?: No Are you experiencing any nausea/vomitting?: No Do you have any diarrhea?: No Are you experiencing any unusual bleeding?: No Do you have any muscle aches/pain?: No Do you have any abdominal pain?: No Are you experiencing loss of taste or smell?: No Other Medical History Have you received the Flu Vaccine for this season: No Have you received the Pneumonia Vaccine: No Review of Systems Review of Systems Review of systems (narrative): Negative *Cardiovascular Comments: Negative *Gastrointestinal Comments: Negative *Genitourinary Comments: Negative *Musculoskeletal Comments: Negative *Neurologic Comments: Negative Meds Home Medications and Allergies Home Medications ?Medication ?Instructions ?Recorded ?Confirmed ?Type levothyroxine 50 mcg tablet 50 mcg PO DAILY 07/08/23 03/14/25 History azathioprine 50 mg tablet 50 mg PO DAILY #90 tabs 02/19/25 03/14/25 Rx sodium,potassium,mag sulfates 17.5 See Rx Instructions PO .COMPLEX 03/20/25 Rx gram-3.13 gram-1.6 gram oral soln #354 mL (Suprep Bowel Prep Kit) New Prescriptions to Start Prescriptions: Allergies Allergy/AdvReac Type Severity Reaction Status Date / Time Penicillins (PENICILLINS) Allergy Intermediate Unknown Verified 03/14/25 14:28 allergy reaction codeine (CODEINE) Allergy Mild Unknown Verified 03/14/25 14:28 allergy reaction acetaminophen (From Tylenol) AdvReac Severe hx of Verified 03/14/25 14:28 autoimmune hepatitis Exam Data for Last 24 hours I & O for Last 24 hours: Intake & Output 03/11/25 03/12/25 03/13/25 03/14/25 23:59 23:59 23:59 23:59 Weight 150 lb *Routine HEENT Exam Head: Present normocephalic Eye: Present EOMI and PERRL ENT: Present mucous membranes moist *Routine Neck Exam Neck: Present supple *Routine Respiratory Exam Respiratory: Present CTA bilaterally *Routine Cardiovascular Exam Cardiovascular: Present RRR *Routine Abdominal Exam Abdominal: Present soft and normoactive bowel sounds; Absent tenderness *Routine Rectal Exam Rectal:: deferred *Routine Genitalia Exam Genitalia:: deferred *Routine Extremities Exam Extremities: Absent cyanosis, clubbing or edema *Routine Skin Exam Skin: Present warm; Absent rash *Routine Neurological Exam Neurological: Present alert and oriented X3 Assessment and Plan *Assessment and plan (1) Elevated anti-Saccharomyces cerevisiae antibody: Status: Acute Category: Medical Code(s): R76.89 - Other specified abnormal immunological findings in serum (2) Diarrhea: Status: Acute Qualifiers: Diarrhea type: unspecified type Qualified Code(s): R19.7 - Diarrhea, unspecified Category: Medical Code(s): R19.7 - Diarrhea, unspecified (3) Abdominal cramping: Status: Acute Category: Medical Code(s): R10.9 - Unspecified abdominal pain (4) Abdominal bloating: Status: Acute Category: Medical Code(s): R14.0 - Abdominal distension (gaseous) Plan A/P: 1. Chronic diarrhea with positive ASCA IgG antibody, abdominal cramps and bloating is the preprocedural diagnosis. The patient will be anesthetized/sedated using MAC sedation. The patient has been seen and examined. Cardiac and lung assessment prior to the examination is stable. Proceed with planned diagnostic colonoscopy.
--- NOTE | 2025-03-21 07:05 | P.PCN_ITS ---
[facility] Procedure Note Date: 03/21/25 Time: 11:32 Procedure Note:: Colonoscopy Procedure Report: Colonoscopy with cold biopsies Endoscopist: Nnamdi Villasenor II, MD Referring physician: Terry Hoff M.D. Date of Procedure: March 21, 2025 Equipment: Olympus [id number] adult colonoscope Sedation: MAC sedation Indication: Ms. Anthony is a 24-year-old female who is here for diagnostic colonoscopy. The patient reports loose stools daily with a lot of bloating, gassiness and belching. She reports 3-4 loose or watery stools daily. She did have an elevated ASCA IgG (25.6). She also previously had an equivocal elevation of tissue transglutaminase IgG (10) with remaining celiac serologies normal. Her fecal elastase testing was greater than 800 mcg/g and her fecal calprotectin was normal at 15. She did take FiberCon for 2 weeks without improvement. The patient reports no rectal bleeding or mucus with her bowel movements. She reports no family history of colitis or Crohn's disease. She does get some lower abdominal discomfort. The patient does have a history of chronic autoimmune hepatitis diagnosed at age 15. Serum hepatic fibrotic markers have shown hepatic stage F0 fibrosis. The examination is deemed medically necessary for diagnostic colonoscopy. Procedure: Prior to the procedure, a history and physical exam was performed, and patient's medications and allergies were reviewed. The risks, benefits and alternatives of the sedation and procedure were discussed with the patient. All questions were answered and informed consent was obtained. The patient was brought to the procedure room. Patient identification and proposed procedure were verified by the physician and the nurse. The patient was placed in a left lateral decubitus position and the scope was passed under direct vision. Throughout the procedure, the patient's blood pressure, pulse, and oxygen saturations were monitored continuously. The colonoscopy was accomplished without difficulty. The patient tolerated the procedure well. Findings: On digital rectal examination there was normal rectal tone. There were no external hemorrhoids. The colonoscope was introduced through the anal canal to the rectum and advanced to the cecum. The ileocecal valve and appendiceal orifice were identified. The scope was advanced a short distance into the ileum which appeared grossly normal. The scope was then withdrawn into the colon. There was a 2 mm very small cecal polyp removed via cold biopsy. The remaining cecum, ascending, transverse, descending, sigmoid and rectum were grossly normal. Random cold biopsies were taken from the right colon to rule out microscopic colitis. There were no other mucosal abnormalities identified. Upon retroflexion within the rectum there were grade 1 internal hemorrhoids. The preparation was excellent throughout with [place] Preparation Score of 9. The cecal time was 12 minutes. Impression: 1. Diminutive 2 mm cecal polyp 2. Otherwise normal colonoscopy with intubation of the terminal ileum Plan: I will follow-up the random biopsies and polyp histology. I do suspect that this is IBS?D. She does have the equivocal celiac marker and history of autoimmune hepatitis. I do feel that EGD with duodenal biopsies would be warranted to definitively exclude celiac disease. We will discuss diagnostic and treatment options today.
[2025-03-21 09:39] VITALS: BP 116/81; PULSE 80; RESP 16; TEMP 36.4; O2SAT 98
[2025-03-21] MEDS: LACTATED RINGERS 1000ML 1,000 ML 50 ML IV (09:43)
[2025-03-21 09:54] LABS: Urine Pregnancy, HCG Qual. Negative (Negative)
--- NOTE | 2025-03-21 10:15 | P.PNANES_ITS ---
[facility] Disclaimer: The information contained in this section may have been updated after the patient was seen, as this information can be updated by other users. Medical History Contraceptive management History of hypothyroidism Autoimmune hepatitis Surgical History History of liver biopsy Family History Other No significant family history Social History Smoking Status: Never smoker second hand exposure: No alcohol intake: never substance use type: denies use current occupational status: other Travel in the last 8 weeks?: None household members: family housing: house Have you lived/traveled outside US in past 30 days?: No Contact w/someone who lives/traveled outside US past 30 days?: No Exposure to someone with infectious disease in past 14 days?: No Do you have a fever (greater than 100.4 F or 38 C)?: No Have you tested positive for COVID-19?: No Exposed to someone with COVID-19 in past 14 days?: No Do you have a sore throat?: No Do you have a cough?: No Do you have any weakness?: No Are you experiencing any nausea/vomitting?: No Do you have any diarrhea?: No Are you experiencing any unusual bleeding?: No Do you have any muscle aches/pain?: No Do you have any abdominal pain?: No Are you experiencing loss of taste or smell?: No [facility] Anesthesia Checklist Patient Identification Patient Identification: Arm Band Structural Data Admitted From: Home Planned Operative Procedure/s: Colonoscopy Consent for Planned Operative Procedure(s) Verified: Yes Verified Documents: Surgical Consent and History and Physical NPO Status Verified Time NPO: 05:30 (finished prep) Additional verifications Anesthesia Reactions: No Airway Assessment Mallampati Score:: Class II C-Spine Mobility Assessed: Yes TMJ Mobility Assessed: Yes Dentition: Good Dentition Neurological Assessment Level of Consciousness: Awake, Alert and Appropriate Anesthesia Plan Anesthesia Risk discussed: Yes Anesthesia Plan: Verified ASA Class: II Anesthesia Type: MAC
[2025-03-21 11:35] VITALS: BP 91/46; PULSE 60; RESP 15; TEMP 36.3; O2SAT 99
[2025-03-21 11:45] VITALS: BP 90/50; PULSE 70; RESP 15; O2SAT 100
[2025-03-21 11:55] VITALS: BP 115/73; PULSE 67; RESP 15; O2SAT 99
[2025-03-21 12:05] VITALS: BP 110/74; PULSE 68; RESP 15; O2SAT 100
[2025-03-21 12:25] VITALS: BP 111/71; PULSE 67; RESP 18; O2SAT 100
== END 2025-03-21 12:25 | disposition home or self-care (01) ==
PROVIDERS: PCP Internal Medicine Adolescent Medicine; Visit Provider Internal Medicine Gastroenterology
PROC: 0DJD8ZZ Inspection of Lower Intestinal Tract, Via Natural or Artificial Opening Endoscopic (ICD-10-PCS; CPT 45378; principal; 2025-03-21 11:00)
DX: R19.7 Diarrhea, unspecified (principal); D12.2 Benign neoplasm of ascending colon; D12.0 Benign neoplasm of cecum; K64.0 First degree hemorrhoids; K75.4 Autoimmune hepatitis; R76.89 Other specified abnormal immunological findings in serum; R10.9 Unspecified abdominal pain; R14.0 Abdominal distension (gaseous); E03.9 Hypothyroidism, unspecified; Z79.890 Hormone replacement therapy; Z79.624 Long term (current) use of inhibitors of nucleotide synthesis; Z88.0 Allergy status to penicillin; Z88.5 Allergy status to narcotic agent; Z88.6 Allergy status to analgesic agent
CPT/HCPCS: 45380; 81025; J2003; J2704; J7120